=== PATIENT | male | born 1970 | race Caucasian/White ===

== ENCOUNTER 2021-12-01 08:41 | Day surgery (SDC) | payer OTHER ==
[2021-11-26 15:53] LABS: Hematocrit 41.1 % (39.6-49.0); Lymphocytes % 19.4 % (15.3-44.8); MCV 68.8 fL (80-100); MPV 7.5 fL (7.6-11.3); RBC Red Blood Cell Count 5.96 M/uL (4.33-5.43)
[2021-11-26 16:06] LABS: Potassium 3.9 mmol/L (3.5-5.1)
[2021-11-26 16:26] LABS: Blood Morphology Comment NOTED (NOT SEEN); Platelet Estimate ADEQ; White Blood Cell Scan OK (OK)
[2021-11-26 16:44] LABS: SARS-CoV-2 Antigen Rapid Res Negative (Negative)
--- NOTE | 2021-11-30 14:00 | EKG ---
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
[2021-12-01] MEDS ORDERED: CEFAZOLIN SODIUM 1 GM/VIAL ONE (09:21)
[2021-12-01] MEDS ORDERED: Ringers Lactate 1,000 ML IV ONE (09:21)
[2021-12-01] MEDS ORDERED: ONDANSETRON 4 MG/2 ML VIAL ONE (11:12)
[2021-12-01] MEDS ORDERED: LIDOCAINE 1% MPF 5 ML VIAL ONE (11:12)
[2021-12-01] MEDS ORDERED: FENTANYL CITR 100 MCG/2 ML ONE ×2 (11:12→11:48)
[2021-12-01] MEDS ORDERED: propofoL 200 MG/20 ML VIAL IV ONE (11:12)
[2021-12-01] MEDS ORDERED: MIDAZOLAM HCL 2 MG/2 ML INJ ONE (11:12)
[2021-12-01 13:10] VITALS: TEMP 97
[2021-12-01 13:31] VITALS: BP 151/97; O2SAT 100
--- NOTE | 2021-12-01 19:34 | OP ---
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 Principle Procedures: 1.Transrectal ultrasound guided placement of fiducial markers, 2. 2.Transrectal ultrasound-guided insertion of SpaceOAR gel. Indication For Procedure: Mr. Chu is a 51-year-old gentleman with elevated PSA, who underwent a biopsy revealing Williston 3 + 4 adenocarcinoma of the prostate involving multiple cores at the left l ateral mid, right mid gland, and 3 + 3 involving the cores bilaterally, clinical T2a at the right bas e. He had some underlying issues with mental disability as well as history of seizure disorder, whic h made him an unsuitable surgical candidate due to his inability to appreciate the procedure and abil ity to maintain things appropriately to avoid complication in the postoperative space. As a result, he was referred for radiation therapy and presents today for insertion of fiducial markers and SpaceO AR gel in preparation for that. Procedure In Detail: The patient was consented in the preoperative holding area before being transfe rred to operative suite where general anesthesia was induced. He was given Ancef 2 g IV antimicrobia l prophylaxis and pneumo boots were provided for DVT prophylaxis. He was placed in the lithotomy pos ition, padded and secured to the table appropriately. His genitalia were elevated anteriorly over hi s abdomen using an Ioban drape. The perineal region was shaved and then prepped with Betadine. The case was begun then by inserting a transrectal ultrasound probe into his rectum and visualizing the p rostate in its entirety in both the sagittal and transverse dimensions. Initially, placing fiducial markers transperineally, I inserted a fiducial marker into the left anterior mid gland of his prostat e and confirmed its placement there. I then placed an additional fiducial marker in the right apex a t the peripheral zone region. Once the fiducials were successfully positioned, I then prepared the S paceOAR gel solution and then directed the needle via the perineal region into the space of the David acosta with ease. I aspirated and no blood was obtained and then injected a puff of air and saline which did initially find a position that may have been subcapsular. The needle was then redirected beneath the capsule into the Denonvilliers space successfully where hydrodissection did reveal an héctor quate placement. I then injected the SpaceOAR gel successfully in the mid gland centrally within the prostate and it did create a nice space. The needle was then removed successfully, and the patient was taken out of the lithotomy position. He was awakened from general anesthesia, transferred to [facility], and then transferred to the recovery room in good condition. Complications: None. Discharge Disposition: He can initiate radiation therapy with Dr. Ribera as soon as simulation can be completed. Subsequent followup should be established in about 6 months' time for interval assess ment or sooner if he develops any bothersome LUTS. AJIT/HODA Voice ID: [id number] Report ID: [id number]
== END 2021-12-01 13:58 | disposition home or self-care (01) ==
LOC: OR 08:41
PROVIDERS: ATTEND Urology
PROC: 0VH43YZ Insertion of Other Device into Prostate and Seminal Vesicles, Percutaneous Approach (ICD-10-PCS; principal; 2021-12-01 09:45)
DX: C61 Malignant neoplasm of prostate (principal); I10 Essential (primary) hypertension; J45.909 Unspecified asthma, uncomplicated; Z20.822 Contact with and (suspected) exposure to COVID-19
CPT/HCPCS: 93005; 85025; 80048; 36415; 87811; 55874; J2704; J2250; J3010; J7120; J2405; J0690